=== PATIENT | female | born 1985 | race African-American/Black ===

== ENCOUNTER 2021-09-13 00:57 | Emergency (ER) | payer SELFPAY ==
[~2021-09-13] VITALS: Ht 172.7 cm; Wt 62.7 kg
[2021-09-13] MEDS ORDERED: DEXTROSE 50%-WATER 25 GM/50 ML SYRINGE IVP ONE (00:59)
[2021-09-13] MEDS ORDERED: SODIUM BICARBONATE [ADULT] 8.4% 50 MEQ/50 ML SYRINGE IVP ONE (00:59)
[2021-09-13] MEDS ORDERED: EPINEPHrine 1:10,000 [1 MG/10 ML] SYRINGE IVP ONE (00:59)
[2021-09-13 01:07] VITALS: BP 0/0
== END 2021-09-13 06:48 ==
LOC: EMS 00:58
DX: I46.9 Cardiac arrest, cause unspecified (principal)
CPT/HCPCS: 92950; 99291; J0171; J3490